=== PATIENT | female | born 1965 | race African-American/Black ===

== ENCOUNTER 2021-01-17 08:15 | Emergency (ER) | payer OTHER, SELFPAY ==
--- NOTE | ~2021-01-17 | XR_ITS ---
XR chest 1V portable DATE: 01/17/2021 08:40 INDICATION: Shortness of breath TECHNIQUE: Portable upright AP chest on 01/17/2021 at 0840 hours COMPARISON: None FINDINGS: There are extensive bilateral pulmonary infiltrates, right greater than left. Normal heart size. No pleural effusion or pulmonary vascular congestion or pneumothorax is evident. Degenerative spurring of the thoracic spine. IMPRESSION: Extensive patchy bilateral pulmonary infiltrates, right greater than left Reviewed, dictated and finalized at location A. IMPRESSION: Extensive patchy bilateral pulmonary infiltrates, right greater waldemar n left
[2021-01-17 08:14] VITALS: BP 124/90; PULSE 92; RESP 25; TEMP 36.6; O2SAT 99
--- NOTE | 2021-01-17 08:23 | ECG_ITS ---
Measurements Intervals [place] Rate: 79 P: 32 ME: 151 QRS: 11 QRSD: 94 T: 27 QT: 381 QTc: 437 Interpretive Statements SINUS RHYTHM DELAYED PRECORDIAL R/S TRANSITION NONSPECIFIC T-WAVE ABNORMALITY- DIFFUSE LEADS BASELINE ARTIFACT- I, II, III, AVR BORDERLINE ECG Electronically Signed On 01-17-2021 9:14:51 CDT by Marcelo Castaneda D.O.
--- NOTE | 2021-01-17 08:32 | PC.NURSE ---
Per lab they cannot run TB quant as they only send them out on Mon Dr Deng aware, asking if we can do a TB skin test. House sup aware
[2021-01-17 08:47] LABS: Basophils Percent Auto 0.4 % (0.2-1.2); Eosinophils Absolute Auto 0.2 K/mm3 (0-0.3); Eosinophils Percent Auto 3.7 % (0-4.4); Hematocrit 38.4 % (37.0-47.0); Hemoglobin 11.7 g/dL (12.0-15.0); Immature Granulocyte Absolute 0.01 K/mm3 (0.00-0.031); Immature Granulocyte Percent A 0.2 % (0-0.5); Lymphocytes Absolute Auto 2.04 K/mm3 (0.9-3.2); Lymphocytes Percent Auto 44.1 % (18.3-44.2); Mean Corpuscular HGB Conc 30.5 g/dl (32-36); Mean Corpuscular Hemoglobin 25.9 pg (26-34); Mean Corpuscular Volume 85.1 fl (80-100); Mean Platelet Volume 10.4 fl (7.4-10.4); Monocytes Absolute Auto 0.3 K/mm3 (0.1-0.6); Monocytes Percent Auto 7.1 % (2.6-8.5); Neutrophils Absolute Auto 2.1 K/mm3 (1.3-6.7); Neutrophils Percent Auto 44.5 % (45.5-73.1); Platelet Count Result 326 k/mm3 (150-375); Red Blood Count 4.51 M/mm3 (4.2-5.4); Red Cell Distribution Width 15.2 % (11.5-14.5); White Blood Count 4.6 K/mm3 (4.5-10.0)
--- NOTE | 2021-01-17 08:55 | PC.NURSE ---
Meal tray and drink provided, ok for PO intake per Dr. Deng
[2021-01-17 08:57] LABS: Alanine Aminotransferase 33 U/L (4-35); Albumin Level 3.6 g/dL (3.5-5.1); Alkaline Phosphatase 101 U/L (38-126); Anion Gap 4 mmol/L (8-16); Aspartate Amino Transferase 31 U/L (14-36); Bilirubin,Total 0.4 mg/dL (0.2-1.3); Blood Urea Nitrogen 2 mg/dL (7-17); Calcium 9.8 mg/dL (8.4-10.2); Carbon Dioxide 29 mmol/L (22-30); Chloride 105 mmol/L (98-107); Estimated Glomerular Filt Rate > 60; Glucose 104 mg/dL (65-105); Potassium 4.1 mmol/L (3.4-5.0); Sodium 138 mmol/L (137-145)
--- NOTE | 2021-01-17 09:10 | ED.GENADULT ---
HPI - General Adult General Chief complaint: Recheck/Abnormal Lab/Rx Stated complaint: tb Time Seen by Provider: 01/17/21 08:21 Source: patient and EMS History of Present Illness HPI narrative: Patient is a 55 y/o female brought in by EMS from [facility] for TB evaluation and pulmonary and ID consult. Patient states that she was hospitalized for COVID, had trach in some hospital in [place]. She states that she was discharged to rehab approximately 1 1/2 week ago. She states that she has cough and SOB, unchanged from baseline. She is not sure why she was sent here. Related Data Home Medications Medication Instructions Recorded Confirmed acetaminophen 01/17/21 enoxaparin [Lovenox] 40 mg SUBCUT DAILY 01/17/21 guaifenesin 200 mg PO Q4H 01/17/21 melatonin 6 mg PO HS PRN 01/17/21 ondansetron HCl 01/17/21 pantoprazole 40 mg PO QAM 01/17/21 polyethylene glycol 3350 [Miralax] 17 g PO DAILY 01/17/21 sulfamethoxazole-trimethoprim tablet 01/17/21 [Bactrim DS] Allergies Allergy/AdvReac Type Severity Reaction Status Date / Time No Known Allergies Allergy Verified 01/17/21 08:22 Review of Systems Constitutional: Constitutional: Denies chills, Denies fever(s), Denies headache(s) and Denies weakness Eyes: Eyes: Denies blurry vision ENT: Denies headache(s) and Denies neck pain Cardiovascular: Cardiovascular: Denies chest pain and Reports dyspnea Respiratory: Respiratory: Reports cough and Reports dyspnea Gastrointestinal: Gastrointestinal: Denies abdominal pain, Denies diarrhea, Denies nausea and Denies vomiting Genitourinary: Genitourinary: Denies hematuria and Denies dysuria Musculoskeletal: Musculoskeletal: Denies back pain and Denies neck pain Neurologic: Denies headache(s) and Denies weakness Exam Const: General: no acute distress and well developed Orientation/consciousness: oriented to person, oriented to place, oriented to time and patient oriented x3 HENMT: Head: normocephalic Ears: external ears normal General nose exam: Normal external nose present Eyes: General: appearance normal, both eyes and all related structures Conjunctivae: conjunctivae normal Neck: Neck: normal visual inspection and full ROM Chest: Chest palpation & inspection: normal inspection of the chest and no tenderness Resp: Effort & Inspection: normal respiratory effort Auscultation: clear to auscultation bilaterally Cardio: Rate: regular rate Rhythm: regular rhythm GI: GI Palp: No abdominal tenderness and Yes Soft to palpation Skin: General skin exam: normal color and turgor normal Neuro: General: oriented to person, oriented to place, oriented to time and patient oriented x3 Cognition (Neuro): normal cognition Extrem: General: normal to inspection, full ROM and no pedal edema Psych: Appearance: grossly normal Mental Status: mental status grossly normal Affect: normal affect Course Consultations Consultation #1: Discussed with Dr. Onofre (pulmonary), who agrees with plan for discharge. Date: 01/17/21 Time: 10:02 Consultation #2: Discussed with Dr. Dill (infection disease), who states that patient can be discharged back to skilled nursing and TB work up is not necessary at this time. He recommends no Quantiferon or sputum AFB. Date: 01/17/21 Time: 11:18 Vital Signs Vital signs: Vital Signs Temperature 36.6 C 01/17/21 08:14 Pulse Rate 92 01/17/21 08:14 Respiratory Rate 25 H 01/17/21 08:14 Blood Pressure 124/90 01/17/21 08:14 Pulse Oximetry 99 01/17/21 08:14 Temperature 36.9 C 01/17/21 14:56 Pulse Rate 89 01/17/21 14:56 Respiratory Rate 21 H 01/17/21 14:56 Blood Pressure 112/96 H 01/17/21 14:56 Pulse Oximetry 100 01/17/21 14:56 Medical Decision Making Vital Signs Vital Signs: Vital Signs Temperature 36.6 C 01/17/21 08:14 Pulse Rate 92 01/17/21 08:14 Respiratory Rate 25 H 01/17/21 08:14 Blood Pressure 124/90 01/17/21 08:14 Pulse Oximetry 99 0
[2021-01-17 09:12] LABS: Troponin I < 0.012 ng/mL (0.000-0.034)
--- NOTE | 2021-01-17 09:35 | PC.NURSE ---
Pt able to transfer self from cart to bedside commode, tolerating 4L NC and maintaining sats >95%. Updated on POC
--- NOTE | 2021-01-17 10:45 | PC.NURSE ---
OK to d/c per Dr. Deng, transport being arranged to [facility]. Pt has non-labored respirations on 4L NC, speaks full clear sentences, tolerated PO intake well
[2021-01-17 10:50] VITALS: BP 128/82; PULSE 78; RESP 18; O2SAT 100
[2021-01-17 11:40] VITALS: BP 128/80; PULSE 68; RESP 23; TEMP 36.4; O2SAT 99
--- NOTE | 2021-01-17 11:45 | PC.NURSE ---
EMS gives ETA of 1300 to the ED principal secretary
[2021-01-17 13:22] VITALS: BP 124/84; PULSE 87; RESP 19; TEMP 36.7; O2SAT 96
[2021-01-17 14:24] VITALS: BP 144/94; PULSE 88; RESP 16; TEMP 36.6; O2SAT 97
[2021-01-17 14:56] VITALS: BP 112/96; PULSE 89; RESP 21; TEMP 36.9; O2SAT 100
== END 2021-01-17 15:00 ==
PROVIDERS: Emergency Provider Emergency Medicine; PCP Family Medicine
DX: U07.1 COVID-19 (principal); R94.31 Abnormal electrocardiogram [ECG] [EKG]
CPT/HCPCS: 36415; 71045; 80053; 84484; 85025; 93005; 99284